=== PATIENT | female | born 1990 | race Caucasian/White ===

== ENCOUNTER 2022-02-06 22:44 | Emergency (ER) | payer MEDICAID ==
[~2022-02-06] VITALS: Ht 160 cm; Wt 86.5 kg
[2022-02-06 23:14] VITALS: BP 113/74
[2022-02-07] MEDS ORDERED: IBUP-2029 MT (00:39)
[2022-02-07] MEDS ORDERED: CLIN-194 MT (00:39)
[2022-02-07] MEDS ORDERED: IBUPROFEN 600MG TABLET PO ONE (01:00)
== END 2022-02-07 01:02 | disposition home or self-care (01) ==
LOC: ER 22:44
DX: K04.7 Periapical abscess without sinus (principal); R68.84 Jaw pain
CPT/HCPCS: 99281; 99283

== ENCOUNTER 2022-04-04 13:19 | Inpatient (IN) | payer MEDICAID ==
[~2022-04-04] VITALS: Ht 154.9 cm; Wt 90.3 kg
[~2022-04-04 13:19] MED LIST: CLIN-194 MT; IBUP-2029 MT
[2022-04-04] MEDS ORDERED: PREN1TAB22 PO (13:42)
[2022-04-04] MEDS ORDERED: NALOXONE HCL 0.4 MG/ML 1ML VIAL IM PRN (14:30)
[2022-04-04] MEDS ORDERED: CARBOPROST TROMETHAMINE 250 MCG/ML AMPUL IM PRN (14:30)
[2022-04-04] MEDS ORDERED: LACTATED RINGERS 1,000 ML IV SCH (14:30)
[2022-04-04] MEDS ORDERED: LIDOCAINE HCL 1% 30ML VIAL (10MG/ML) INFIL SCH (14:30)
[2022-04-04] MEDS ORDERED: BUTORPHANOL TARTRATE 2 MG/ML VIAL IV PRN (14:30)
[2022-04-04] MEDS ORDERED: METHYLERGONOVINE MALEATE 0.2 MG/ML IM PRN ×2 (14:30→19:00)
[2022-04-04 15:14] LABS: CLARITY URINE CLEAR (CLEAR); COLOR URINE YELLOW (YELLOW); KETONES URINE NEGATIVE (NEGATIVE); LEUKOCYTE ESTERASE URINE NEGATIVE (NEGATIVE); NITRITE URINE NEGATIVE (NEGATIVE); OCCULT BLOOD URINE NEGATIVE (NEGATIVE); PROTEIN URINE 1+ (NEGATIVE); SPECIFIC GRAVITY URINE 1.022 (1.005-1.030)
[2022-04-04 15:15] LABS: BASOPHILS % 0.3 % (0.0-2.0); EOSINOPHILS % 0.7 % (0.0-5.0); HEMATOCRIT. 39.6 % (36.0-48.0); HEMOGLOBIN. 13.1 g/dL (12.0-16.0); LYMPHOCYTES % 34.8 % (20.0-50.0); MEAN CORPUSCULAR HEMOGLOBIN 28.1 pg (28.0-32.0); MEAN CORPUSCULAR VOLUME 84.8 fL (81.0-99.0); MEAN PLATELET VOLUME 10.1 fl (7.4-10.4); MONOCYTES % 7.4 % (2.0-8.0); NEUTROPHILS % 56.8 % (40.0-76.0); PLATELET 233 x1000/uL (130-400); RED BLOOD CELL COUNT 4.68 mill/uL (4.2-5.4); RED CELL DISTRIBUTION WIDTH 16.3 % (11.6-14.6)
[2022-04-04 15:26] LABS: INR 0.9; PARTIAL THROMBOPLASTIN TIME 23.9 sec (23.4-31.0); PROTHROMBIN TIME 9.4 sec (9.6-11.0)
[2022-04-04 15:39] LABS: *AMPHETAMINES SCREEN URINE NEGATIVE (NEGATIVE); *BARBITURATES SCREEN URINE NEGATIVE (NEGATIVE); *BENZODIAZEPINES SCREEN URINE NEGATIVE (NEGATIVE); *COCAINE SCREEN URINE NEGATIVE (NEGATIVE); CANNABINOID URINE SCREEN NEGATIVE (NEGATIVE); METHADONE URINE SCREEN NEGATIVE (NEGATIVE); OPIATES URINE SCREEN NEGATIVE (NEGATIVE); PHENCYCLIDINE URINE SCREEN NEGATIVE (NEGATIVE)
[2022-04-04 16:06] LABS: HEPATITIS B SURFACE ANTIGEN NEGATIVE
[2022-04-04] MEDS: OXYTOCIN 30 UNITS/500ML NS PMX 500 ML IV SCH ×2 (16:40→19:03)
[2022-04-04] MEDS ORDERED: ROPIVACAINE HCL/PF EPIDURAL 200 ML EPI ONE (17:39)
[2022-04-04] MEDS ORDERED: ROPIVACAINE HCL/PF EPIDURAL 200 ML EPI SCH (18:45)
[2022-04-04] MEDS ORDERED: OXYCODONE HCL/ACETAMINOPHEN 5/325MG TABLET PO PRN (19:00)
[2022-04-04] MEDS ORDERED: BISACODYL 10MG SUPP PR PRN (19:00)
[2022-04-04] MEDS ORDERED: OXYTOCIN 30 UNITS/500ML NS PMX 500 ML IV SCH (19:00)
[2022-04-04] MEDS ORDERED: HEMORRHOIDAL SUPP PR PRN (19:00)
[2022-04-04] MEDS ORDERED: LANOLIN OINT 7GM TUBE TOP PRN (19:00)
[2022-04-04] MEDS ORDERED: DIPHENHYDRAMINE 25MG CAPSULE PO PRN (19:00)
[2022-04-04] MEDS ORDERED: GLYCERIN/WITCH HAZEL LEAF MEDICATED PAD TOP PRN (19:00)
[2022-04-04] MEDS ORDERED: IBUPROFEN 400MG TABLET PO PRN (19:00)
[2022-04-04] MEDS ORDERED: DOCUSATE SODIUM 100MG CAPSULE PO SCH (21:00)
[2022-04-04 21:15] VITALS: BP 126/59
[2022-04-04 21:45] VITALS: BP 113/56
[2022-04-04 22:15] VITALS: BP 121/55
[2022-04-05 04:15] VITALS: BP 120/75
[2022-04-05] MEDS ORDERED: MEASLES,MUMPS&RUBELLA VACCINE 1 VIAL SUBCUT ONE (04:30)
[2022-04-05 07:09] LABS: BASOPHILS % 0.1 % (0.0-2.0); EOSINOPHILS % 0.6 % (0.0-5.0); HEMATOCRIT. 35.2 % (36.0-48.0); HEMOGLOBIN. 11.5 g/dL (12.0-16.0); LYMPHOCYTES % 33.1 % (20.0-50.0); MEAN CORPUSCULAR HEMOGLOBIN 27.6 pg (28.0-32.0); MEAN PLATELET VOLUME 9.9 fl (7.4-10.4); MONOCYTES % 8.4 % (2.0-8.0); NEUTROPHILS % 57.8 % (40.0-76.0); PLATELET 191 x1000/uL (130-400); RED BLOOD CELL COUNT 4.15 mill/uL (4.2-5.4); RED CELL DISTRIBUTION WIDTH 16.2 % (11.6-14.6)
[2022-04-05 08:00] VITALS: BP 127/70
[2022-04-05] MEDS: PRENATAL VIT/FE FUMARATE/FA TABLET PO SCH (08:57)
[2022-04-05] MEDS: FERROUS SULFATE 325MG TABLET PO SCH (08:57)
[2022-04-05 16:00] VITALS: BP 118/72
[2022-04-05 20:00] VITALS: BP 126/82
[2022-04-05] MEDS: IBUPROFEN 800MG TABLET PO PRN (20:18)
[2022-04-06 03:30] VITALS: BP 126/84
[2022-04-06] MEDS: IBUPROFEN 800MG TABLET PO PRN (03:41)
[2022-04-06 08:00] VITALS: BP 126/76
[2022-04-06] MEDS: PRENATAL VIT/FE FUMARATE/FA TABLET PO SCH (08:46)
[2022-04-06] MEDS: FERROUS SULFATE 325MG TABLET PO SCH (08:46)
== END 2022-04-06 15:35 | disposition home or self-care (01) | DRG 560 ==
LOC: 8 EST LDRP 13:19 → OBSVTOIN 13:19 → 8EST 21:26
PROVIDERS: ADMIT Obstetrics & Gynecology; ATTEND Obstetrics & Gynecology
PROC: 10E0XZZ Delivery of Products of Conception, External Approach (ICD-10-PCS; principal; 2022-04-06)
PROC: 00HU33Z Insertion of Infusion Device into Spinal Canal, Percutaneous Approach (ICD-10-PCS; 2022-04-06)
PROC: 3E0R3BZ Introduction of Anesthetic Agent into Spinal Canal, Percutaneous Approach (ICD-10-PCS; 2022-04-06)
DX: O24.429 Gestational diabetes mellitus in childbirth, unspecified control (principal); Z37.0 Single live birth; O99.214 Obesity complicating childbirth; Z20.822 Contact with and (suspected) exposure to COVID-19; Z3A.38 38 weeks gestation of pregnancy
CPT/HCPCS: 36415; 76805; 80305; 81003; 82947; 85025; 86592; 86703; 86762; 86850; 86900; 87340; 87426; 90707; 99281; J2795; J7120; J2590

== ENCOUNTER 2025-06-03 09:33 | Emergency (ER) | payer MEDICAID, MEDICARE ==
[~2025-06-03] VITALS: Ht 157.5 cm; Wt 73.0 kg
[~2025-06-03 09:33] MED LIST changes: +IBUP-1455 MT; -IBUP-2029 MT; +PREN1TAB22 PO
[2025-06-03 09:40] VITALS: O2SAT 98
[2025-06-03 10:16] LABS: BASOPHILS % 0.3 % (0.0-2.0); EOSINOPHILS % 1.9 % (0.0-5.0); HEMATOCRIT. 41.8 % (36.0-48.0); HEMOGLOBIN. 13.8 g/dL (12.0-16.0); LYMPHOCYTES % 24.0 % (20.0-50.0); MEAN PLATELET VOLUME 8.7 fl (7.4-10.4); MONOCYTES % 5.5 % (2.0-8.0); NEUTROPHILS % 68.3 % (40.0-76.0); PLATELET 247 x1000/uL (130-400); RED BLOOD CELL COUNT 4.94 mill/uL (4.2-5.4); RED CELL DISTRIBUTION WIDTH 13.3 % (11.6-14.6)
[2025-06-03] MEDS: KETOROLAC 30MG/ML VIAL IM ONE (10:20)
[2025-06-03 10:25] LABS: CLARITY URINE CLEAR (CLEAR); COLOR URINE DARK YELLOW (YELLOW); GLUCOSE URINE NEGATIVE (NEGATIVE); KETONES URINE TRACE (NEGATIVE); LEUKOCYTE ESTERASE URINE TRACE (NEGATIVE); NITRITE URINE NEGATIVE (NEGATIVE); OCCULT BLOOD URINE NEGATIVE (NEGATIVE); PH URINE 6.5 (4.5-8.0); PROTEIN URINE 2+ (NEGATIVE); SPECIFIC GRAVITY URINE 1.038 (1.005-1.030); UROBILINOGEN URINE 1.0 E.U./dL (0.2-1.0)
[2025-06-03 10:27] LABS: INR 1.0
[2025-06-03 10:39] LABS: BACTERIA URINE 2+; RBC URINE 0-2 /hpf (0-2); SQUAMOUS EPITHELIAL CELL URINE 2+ /lpf (RARE/1+); YEAST URINE NONE SEEN
[2025-06-03 10:40] LABS: CREATININE 0.8 mg/dL (0.6-1.0); UREA NITROGEN BLOOD 12 mg/dL (9-23)
[2025-06-03 10:42] LABS: ASPARTATE AMINOTRANSFERASE 23 IU/L (<34); BILIRUBIN DIRECT 0.4 mg/dL (<=3.0); BILIRUBIN TOTAL 1.1 mg/dL (0.1-1.0); PROTEIN TOTAL 7.8 g/dL (6.0-8.3)
[2025-06-03 10:50] LABS: HCG SCREEN NEGATIVE
[2025-06-03] MEDS ORDERED: CEPH500C2 MT (10:52)
[2025-06-03] MEDS ORDERED: POLY119P2 MT (10:52)
[2025-06-03 11:01] VITALS: BP 105/71; PULSE 83; RESP 16; TEMP 37.1; O2SAT 98
== END 2025-06-03 11:03 | disposition home or self-care (01) ==
LOC: ER 09:33
DX: N39.0 Urinary tract infection, site not specified (principal); G89.18 Other acute postprocedural pain; Z90.49 Acquired absence of other specified parts of digestive tract
CPT/HCPCS: 99284; 80076; 80048; 81003; 81025; 84703; 83690; 85025; 85610; 36415; 74018; 96372; J1885